=== PATIENT | male | born 1975 | race Caucasian/White ===

== ENCOUNTER 2021-05-11 20:41 | Emergency (ER) | payer OTHER ==
[2021-05-11] MEDS ORDERED: CEPHALEXIN500 MG PO (22:22)
[2021-05-11] MEDS ORDERED: LODINE CAP 300300 MG PO (22:22)
== END 2021-05-11 22:38 | disposition home or self-care (01) ==
LOC: ER1 20:41
DX: S61.411A Laceration without foreign body of right hand, initial encounter (principal); F17.210 Nicotine dependence, cigarettes, uncomplicated; Z23 Encounter for immunization; W26.8XXA Contact with other sharp object(s), not elsewhere classified, initial encounter; Y92.69 Other specified industrial and construction area as the place of occurrence of the external cause; Y99.0 Civilian activity done for income or pay
CPT/HCPCS: 12002; 73130; 90471; 90715; 99283